=== PATIENT | male | born 2000 | race Caucasian/White ===

== ENCOUNTER 2018-12-15 08:43 | Emergency (ER) | payer OTHER ==
[2018-12-15] MEDS ORDERED: ACETAMINOPHEN 500 MG TAB PO ONE (08:56)
[2018-12-15] MEDS ORDERED: LIDOCAINE 2% VISCOUS 15 ML UDCUP PO ONE (08:56)
[2018-12-15] MEDS ORDERED: DEXAMETHASONE 4 MG TAB PO ONE (08:56)
--- NOTE | 2018-12-15 08:56 | EDPHY ---
H & P Time Seen by Provider: 12/15/18 08:53 HPI/ROS: HPI: This is a 18-year-old male who presents with Chief Complaint: Fever, sore throat, body aches Location: Body Quality: Fever, sore throat, aches Duration: Since yesterday Signs and Symptoms: + fever, no nausea, no vomiting, no diarrhea, no urinary symptoms, no chest pain, no shortness of breath, no wheezing, + nonproductive cough, + sore throat, no neck stiffness, no joint pain, + swollen glands, no ear pain, no rash, no voice changes. Timing: Acute, constant Severity: Moderate Context: Patient is a student at [employer], history of asthma, presents with sudden onset of fever with a T-max of a 102 to 103 F taken orally, sore throat, swollen glands and body aches. He reports that he has a nonproductive cough. He did not receive influenza vaccine this year. He denies any shortness of breath, wheezing, chest pain. He has not had use his albuterol inhaler. He does have an inhaler at home. School yesterday. Reports unable to eat food secondary to pain with swallowing. Modifying Factors: Advil 1 and 0.5 hr prior to arrival to the ER Comment: ROS: A comprehensive 10 system review of systems is otherwise negative aside from elements mentioned in the history of present illness. MEDICAL/SURGICAL/SOCIAL HISTORY: Medical history: Asthma. Surgical history: Denies Social history: Originally from [place], [place]. Nonsmoker. Family history noncontributory. CONSTITUTIONAL: Ill but nontoxic-appearing young adult white male, awake and alert, no obvious distress HEENT: Atraumatic and normocephalic, PERRL, EOMI. Nares patent; no rhinorrhea; no nasal mucosal edema. Tympanic membranes clear. Oropharynx clear, tonsils 2 + with mild erythema and white exudate, uvula midline, and dry oral mucosa. Airway patent. + body anterior cervical lymphadenopathy. No meningismus. Cardiovascular: Normal S1/S2, tachycardia, regular rhythm, without murmur rub or gallop. PULMONARY/CHEST: Symmetrical and nontender. Clear to auscultation bilaterally. Good air movement. No accessory muscle usage. ABDOMEN: Soft, nondistended, nontender, no rebound, no guarding, no peritoneal signs, no masses or organomegaly. No CVAT. EXTREMITIES: 2/2 pulses, strength 5/5, no deformities, no clubbing, no cyanosis or edema. NEUROLOGICAL: no focal neuro deficits. GCS 15. Speech clear. SKIN: Warm and dry, no erythema. no rash. Good capillary refill. Source: Patient Exam Limitations: No limitations Constitutional: Initial Vital Signs Temperature (C) 36.8 C 12/15/18 08:52 Heart Rate 94 12/15/18 08:52 Respiratory Rate 16 12/15/18 08:52 Blood Pressure 129/81 H 12/15/18 08:52 O2 Sat (%) 94 12/15/18 08:52 O2 Delivery Mode Room Air Allergies/Adverse Reactions: No Known Allergies Allergy (Unverified 12/15/18 08:58) Home Medications: Medication Instructions Recorded Advair Hfa 115-21 Mcg Inhaler 12/15/18 Albuterol 12/15/18 Cefuroxime Axetil [Ceftin (*)] 250 mg PO BID 10 Days tab 12/15/18 oxyCODONE/APAP 5/325 [Percocet 1 - 2 tab PO Q4H PRN #10 tab 12/15/18 5/325 (*)] Medical Decision Making ED Course/Re-evaluation: Vital signs reviewed and show tachycardia and pyrexia. Influenza swab and rapid strep ordered Patient given p.o. Decadron 10 mg, p. O. Tylenol 1000 mg and viscous lidocaine 15 mL Rapid strep positive. Influenza negative. Given a prescription for Ceftin x 10 days and school excuse. No signs of tonsillar abscess/meningitis/otitis media/respiratory distress/ asthma exacerbation This patient was seen under the supervision of my secondary supervising physician. I evaluated care for this patient independently. Differential Diagnosis: Differential diagnosis includes but is not limited to influenza, strep pharyngitis, viral pharyngitis, infectious mononucleosis. - Data Points Laboratory Results: 12/15/18 09:00 Nasal Influenza A PCR NEGATIVE FOR FLU A (NEGATIVE) Nasal Influenza B PCR NEGATIVE FOR FLU B (NEGATIVE) Group A Strep Screen POSITIVE H (NEGATIVE) Medications Given: Discontinued Medications Acetaminophen (Tylenol) 1,000 mg PO EDNOW ONE Stop: 12/15/18 08:57 Last Admin: 12/15/18 09:08 Dose: 1,000 mg Dexamethasone (Decadron) 10 mg PO EDNOW ONE Stop: 12/15/18 08:57 Last Admin: 12/15/18 09:08 Dose: 10 mg Lidocaine (Lidocaine 2% Viscous) 15 ml PO EDNOW ONE Stop: 12/15/18 08:57 Last Admin: 12/15/18 09:08 Dose: 15 ml Departure - Departure Disposition: Home, Routine, Self-Care Clinical Impression: Strep tonsillitis Condition: Good Instructions: Strep Throat (ED) Additional Instructions: Consume a minimum of 8-10 glasses of water or electrolyte fluid replacement drinks that include Gatorade, Powerade, Pedialyte. Eat a bland diet for the next 48 hours and then slowly advance as tolerated. Take antibiotic as directed. Do not skip a dose and complete entire 10 day course. Take Tylenol 650 mg every 4 hours and/or Ibuprofen 600 mg every 8 hours with food as needed for pain. Use Percocet every 6 hours as needed for severe/break through pain. Do not use Tylenol and Percocet concomitantly. Return to the ER immediately if you cannot swallow, have drooling, fevers, neck stiffness, cannot open your jaw, or any other symptoms that concern you. Referrals: [facility],. [Clinic] - As per Instructions Stand Alone Forms: School Excuse Prescriptions: Cefuroxime Axetil [Ceftin (*)] 250 mg PO BID 10 Days tab oxyCODONE/APAP 5/325 [Percocet 5/325 (*)] 1 - 2 tab PO Q4H PRN #10 tab PRN Reason: Pain, Severe
[2018-12-15 09:48] VITALS: BP 125/81
== END 2018-12-15 09:50 | disposition home or self-care (01) ==
DX: J02.0 Streptococcal pharyngitis (principal)